=== PATIENT | female | born 1955 | race Caucasian/White ===

== ENCOUNTER → 2016-08-26 | Outpatient (CLI) | payer OTHER | LOC: FIMAGING 14:14 | PROVIDERS: ATTEND Obstetrics & Gynecology | DX: Z12.39 Encounter for other screening for malignant neoplasm of breast (principal); N64.4 Mastodynia | CPT/HCPCS: G0204 ==

== ENCOUNTER 2017-06-18 03:17 | Emergency (ER) | payer OTHER ==
--- NOTE | 2017-06-18 03:34 | CPEKG ---
Heart Rate: 71 RR Interval: 845 P-R Interval: 184 QRSD Interval: 86 QT Interval: 412 QTC Interval: 448 P Hamilton: 56 QRS Hamilton: -33 T Wave Hamilton: 46 EKG Severity - OTHERWISE NORMAL ECG - EKG Impression: SINUS RHYTHM EKG Impression: LEFT AXIS DEVIATION Electronically Signed By: Mushtaq Polanco 18-Jun-2017 06:38:15
[2017-06-18 04:35] LABS: PLATELET COUNT 374 10^3/uL (150-400)
--- NOTE | 2017-06-18 04:40 | EDPHY ---
H & P Stated Complaint: c/o chest pain on waking at 0230, says felt lightheaded Time Seen by Provider: 06/18/17 03:36 HPI/ROS: Chief Complaint: Chest pain HPI: 61-year-old woman woke at 2:30 a.m. This morning with substernal chest discomfort which has persisted. Patient is describing ways of tightness in the center of her chest which occasionally radiate to her back. Symptoms come in waves lasting several seconds. She has about 2 episodes per minute. Pain goes completely away between the episodes. At worst is a 2 in 10. No shortness of breath. She has not noted any aggravating or alleviating factors. Pain is not pleuritic. It is not positional. No fevers or chills. No nausea or vomiting. She has a history of hypertension. ROS: 10 point Review of Systems is negative except as noted in the HPI. PMH: Hypertension Social History: No smoking, no alcohol, no recreational drug use Family History: non-contributory Physical Exam: Gen: Awake, Alert, No Distress HEENT: Nose: no rhinorrhea Eyes: PERRLA, EOMI Mouth: Moist mucosa Neck: Supple, no JVD Chest: nontender, lungs clear to auscultation Heart: S1, S2 normal, no murmur Abd: Soft, non-tender, no guarding Back: no CVA tenderness, no midline tenderness Ext: no edema, non-tender Skin: no rash Neuro: CN II-XII intact, Sensation grossly intact, Strength 5/5 in bilateral upper and lower extremities - Medical/Surgical History Hx Asthma: No Hx Chronic Respiratory Disease: No Hx Diabetes: No Hx Cardiac Disease: Yes Hx Renal Disease: No Hx Cirrhosis: No Hx Alcoholism: No Hx HIV/AIDS: No Hx Splenectomy or Spleen Trauma: No Other PMH: hypertension, R shoulder surg - Social History Smoking Status: Former smoker Constitutional: Initial Vital Signs Temperature (C) 36.4 C 06/18/17 03:21 Heart Rate 74 06/18/17 03:21 Respiratory Rate 16 06/18/17 03:21 Blood Pressure 169/88 H 06/18/17 03:21 O2 Sat (%) 98 06/18/17 03:21 O2 Delivery Mode Room Air Allergies/Adverse Reactions: No Known Allergies Allergy (Verified 06/18/17 03:24) Home Medications: Medication Instructions Recorded Losartan Potassium 06/18/17 Medical Decision Making - Diagnostics EKG Interpretation: ECG time 3:32 a.m., sinus rhythm with a rate of 71, left axis deviation, normal intervals, no acute ST or T-wave changes. Impression: Normal ECG. Imaging Results: Chest x-ray is negative per my interpretation. Imaging: I viewed and interpreted images myself ED Course/Re-evaluation: 61-year-old presenting with very atypical chest pain coming in waves. ECG is negative. Troponin is negative. Chest x-ray is negative. Remainder blood work is unremarkable. Patient has been given aspirin here. I have explained to her that in order to adequately rule out acute coronary syndrome she needs to have at least 4-6 hour troponin. She does not want to stay in the hospital. I have explained the risks and she understands that even though her pain is very atypical and I do not think it is cardiac in nature that this cannot be ruled out without repeat blood test. She understands the risks involved and still does not want to stay. She will certainly return if symptoms worsen or do not improve. Otherwise she will follow up with primary care physician for further evaluation. - Data Points Laboratory Results: Laboratory Results 06/18/17 03:37 06/18/17 03:57 06/18/17 06/18/17 03:57 03:37 WBC 6.32 10^3/uL 10^3/uL (3.80-9.50) RBC 4.47 10^6/uL 10^6/uL (4.18-5.33) Hgb 13.8 g/dL g/dL (12.6-16.3) Hct 41.9 % % (38.0-47.0) MCV 93.7 fL fL (81.5-99.8) MCH 30.9 pg pg (27.9-34.1) MCHC 32.9 g/dL g/dL (32.4-36.7) RDW 11.9 % % (11.5-15.2) Plt Count 374 10^3/uL 10^3/uL (150-400) MPV 10.4 fL fL (8.7-11.7) Neut % (Auto) 42.5 % % (39.3-74.2) Lymph % (Auto) 45.1 % H % (15.0-45.0) [place] % (Auto) 8.9 % % (4.5-13.0) Eos % (Auto) 2.2 % % (0.6-7.6) Baso % (Auto) 1.1 % % (0.3-1.7) Nucleat RBC Rel Count 0.0 % % (0.0-0.2) Absolute Neuts (auto) 2.69 10^3/uL 10^3/uL (1.70-6.50) Absolute Lymphs (auto) 2.85 10^3/uL 10^3/uL (1.00-3.00) Absolute Monos (auto) 0.56 10^3/uL 10^3/uL (0.30-0.80) Absolute Eos (auto) 0.14 10^3/uL 10^3/uL (0.03-0.40) Absolute Basos (auto) 0.07 10^3/uL 10^3/uL (0.02-0.10) Absolute Nucleated RBC 0.00 10^3/uL 10^3/uL (0-0.01) Immature Gran % 0.2 % % (0.0-1.1) Immature Gran # 0.01 10^3/uL 10^3/uL (0.00-0.10) Sodium 141 mEq/L mEq/L (135-145) Potassium 4.3 mEq/L mEq/L (3.5-5.2) Chloride 104 mEq/L mEq/L (97-110) Carbon Dioxide 28 mEq/l mEq/l (22-31) Anion Gap 9 mEq/L mEq/L (8-16) BUN 17 mg/dL mg/dL (7-23) Creatinine 0.9 mg/dL mg/dL (0.6-1.0) Estimated GFR > 60 Glucose 104 mg/dL H mg/dL (70-100) Calcium 10.0 mg/dL mg/dL (8.5-10.4) Total Bilirubin 0.5 mg/dL mg/dL (0.1-1.4) AST 33 IU/L IU/L (14-46) ALT 39 IU/L IU/L (9-52) Alkaline Phosphatase 61 IU/L IU/L (38-126) Troponin I < 0.012 ng/mL ng/mL (0.000-0.034) Total Protein 7.1 g/dL g/dL (6.3-8.2) Albumin 4.4 g/dL g/dL (3.5-5.0) Medications Given: Discontinued Medications Al Hydroxide/Mg Hydroxide (Maalox Susp) 30 ml PO ONCE ONE Stop: 06/18/17 04:55 Last Admin: 06/18/17 04:59 Dose: 30 ml Lidocaine (Lidocaine 2% Viscous) 15 ml PO ONCE ONE Stop: 06/18/17 04:55 Last Admin: 06/18/17 04:59 Dose: 15 ml Departure - Departure Disposition: Home, Routine, Self-Care Clinical Impression: Chest pain Condition: Good Instructions: Chest Pain (ED) Additional Instructions: Follow up with primary care physician in 2-3 days to arrange for outpatient stress test. Return to the emergency department for increasing pain, shortness of breath, lightheadedness, fainting, or any other concerns. Referrals: LIS LUNA [Primary Care Provider] - As per Instructions
[2017-06-18] MEDS ORDERED: LIDOCAINE 2% VISCOUS 15 ML UDCUP PO ONE (04:54)
[2017-06-18] MEDS ORDERED: MAG HYDROX/AL HYDROX/SIMETH 30 ML UDCUP PO ONE (04:54)
[2017-06-18 05:20] VITALS: BP 165/82; PULSE 72; RESP 14; TEMP 97.9; O2SAT 97
== END 2017-06-18 05:20 | disposition home or self-care (01) ==
DX: R07.9 Chest pain, unspecified (principal); I10 Essential (primary) hypertension; Z87.891 Personal history of nicotine dependence

== ENCOUNTER → 2017-08-23 | Outpatient (CLI) | payer OTHER | LOC: FIMAGING 08:04 | PROVIDERS: ATTEND Obstetrics & Gynecology | DX: Z12.31 Encounter for screening mammogram for malignant neoplasm of breast (principal) ==

== ENCOUNTER → 2018-09-23 | Outpatient (CLI) | payer OTHER | LOC: FIMAGING 07:49 ==